=== PATIENT | female | born 1995 | race Caucasian/White ===

== ENCOUNTER 2025-04-02 15:27 | Emergency (ER) | payer MEDICAID, SELFPAY ==
--- OUTSIDE RECORDS SUMMARY | 2023-11-23 04:00 | XMS_ITS ---
Author Organization [facility] Address [address] [place] [address] [place] [address] Care Team Providers Care Hitch Technician Name Role Phone VAN CORREA MD Primary Care Provider Sunitha Tadeo Kelly Unavailable [phone] Allergies Allergen (clinical drug ingredient) Drug/Non Drug Allergy documented on EMR Reaction Allergy Type Onset Date Status levalbuterol Levalbuterol HCl Unknown Drug Allergy Active REASON FOR VISIT F/u appt for sz d/o, verbal consent obtained and pt ID verified for TeleHealth visit from physicianoffice (no video capability available) Medications Medication SIG (Take, Route, Frequency, Duration) Notes Start Date End Date Status Neupro 4 MG/24HR 1 patch to skin Transdermal Once a day; Duration: 30 days Active Ramelteon 8 MG 1 tablet at bedtime as needed Orally Once a day; Duration: 30 days 11/15/2019 Active Pantoprazole Sodium 40 MG 1 tablet Orally Once a day; Duration: 30 day(s) Active LaMICtal 150 MG 1 tablet Orally Twic e a day; Duration: 30 days Active Vimpat 100 MG 1 tablet Orally Twic e a day; Duration: 30 days 04/27/2023 Active Osmolite 1.5 Parmjit - Orally A ctive Pepcid Active Promethazine HCl 6.25 MG/5ML 10 ml as needed Orally every 6 hrs Active Zofran 4 MG 1 tablet Orally Once a day; Duration: 30 day(s) Active Claritin 5 MG/5ML 10 ml Orally Once a day Active Digoxin 0.25 mg 1 tab Oral qd Unknown Probiotic - Orally Active Methenamine Hippurate 1 GM 1 tablet Orally Twice a day Active Calcium Carbonate 1250 (500 Ca) MG 1 tablet Orally Once a day Active Vitamin D3 1000 UNIT 1 capsule Orally On ce a day Active Dilantin 125 MG/5ML 3 ml Orally Four kendrick es a day Unknown Protonix 40 MG 1 tablet Orally Once a day Unknown Tylenol 500 MG/15ML Orally Unknown Ipratropium [place] 0.02 % Inhalation Unknown Melatonin 5 MG 1 tablet at bedtime as needed with food Orally Once a day Unknown Zofran 4 MG/5ML 10 ml Orally Twice a day Unknown Norditropin FlexPro 5 MG/1.5ML as directed Subcutaneous Not -Taking Citalopram Hydrobromide 40 MG take 1.5 tablets Orally Once a day; Duration: 30 days Active Ranitidine HCl 150 MG 1 capsule at bedti me Orally twice a day Unknown traMADol HCl Not-Wilfred ing QUEtiapine Fumarate 100 MG 1 tablet at bedtime Orally Once a day; Duration: 30 days Active Baclofen 20 MG 1 tablet Orally Thre e times a day; Duration: 30 days Active Social History Tobacco Use: Social History Observation Description Date Details (start date - stop date) Never Smoker NA - NA smoking Question Answer Notes Are you a: never smoker Additional Findings: Tobacco Non-User Intolerant non-smoker alcohol Question Answer Notes Did you have a drink containing alcohol in the p ast year? 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 Assessments Encounter Date Diagnosis (ICD Code) Assessment Notes Treatment Notes Treatment Clinical Notes Section Notes 11/23/2023 Other generalized epilepsy and epileptic syndromes, not intractable, without status epilepticus (ICD-10 - G40.409) Plan Of Treatment Next Appt Details Follow Up: 6 Months, Reason: Progress Notes * NEREIDA DASOB:1995 ( 29 yo F)Acc No.[id number]:11/23/2023 Patient: CLAUDIO CORDON Provider: Ashwin Lee MD :1995 A ge:28 Y S ex:Female Date:11/23/2023 Address:[address] [place] [address] [id number] Pcp:VAN CORREA MD Subjective: * Chief Complaints: * 1 . F/u appt for sz d/o. 2. verbal consent obtained and pt ID verified for TeleHealth visit from physician office (no video capability available). * HPI: C onstitutional: Medication reviewed with patient. * ROS: C onstitutional: Covid vaccine Y es. n o F atigue. n o W eakness. C ardiology: no C hest pain. n o S hortness of breath. ? G astroenterology: no N ausea. n o V omiting. N eurology: no D izziness. n o F alls. n o N umbness.?no S eizure. n o T ingling. n o T rouble with balance. P sychology: no A nxiety. n o D epression. * Medical History: H [place], Brain injury. * Surgical History: D enies Past Surgical History. * Hospitalization/Major Diagno stic Procedure: D enies Past Hospitalization. * Family History: Mother-HTN. * Social History: A lcohol: no D id you have a drink containing alcohol in the past year? N o, P oints 0 , I nterpretation N egative. D rugs: type:. Marital status: single. Smoking: no Are you a: n ever smoker, A dditional Findings: Tobacco Non-User I ntolerant non-smoker. T obacco: no. * Medications: T aking Vitamin D3 1000 UNIT Capsule 1 capsule Orally Once a day , Taking Calcium Carbonate 1250 (500 Ca) MG Tablet Chewable 1 tablet Orally Once a day , Taking Methenamine Hippurate 1 GM Tablet 1 tablet Orally Twice a day , Taking Probiotic - Capsule Orally , Taking Osmolite 1.5 Parmjit - Liquid Orally , Taking Promethazine HCl 6.25 MG/5ML Syrup 10 ml as needed Orally every 6 hrs , Taking Pepcid , Taking Claritin 5 MG/5ML Syrup 10 ml Orally Once a day , Taking Zofran 4 MG Tablet 1 tablet Orally Once a day , Taking Pantoprazole Sodium 40 MG Tablet Delayed Release 1 tablet Orally Once a day , Taking Ramelteon 8 MG Tablet 1 tablet at bedtime as needed Orally Once a day , Taking Vimpat 100 MG Tablet 1 tablet Orally Twice a day , Taking LaMICtal 150 MG Tablet 1 tablet Orally Twice a day , Taking Neupro 4 MG/24HR Patch 24 Hour 1 patch to skin Transdermal Once a day , Taking Baclofen 20 MG Tablet 1 tablet Orally Three times a day , Taking QUEtiapine Fumarate 100 MG Tablet 1 tablet at bedtime Orally Once a day , Taking Citalopram Hydrobromide 40 MG Tablet take 1.5 tablets Orally Once a day , Not-Taking Norditropin FlexPro 5 MG/1.5ML Solution as directed Subcutaneous , Not-Taking traMADol HCl , Unknown Ranitidine HCl 150 MG Capsule 1 capsule at bedtime Orally twice a day , Unknown Zofran 4 MG/5ML Solution 10 ml Orally Twice a day , Unknown Tylenol 500 MG/15ML Liquid Orally , Unknown Melatonin 5 MG Tablet 1 tablet at bedtime as needed with food Orally Once a day , Unknown Ipratropium [place] 0.02 % Solution Inhalation , Unknown Protonix 40 MG Tablet Delayed Release 1 tablet Orally Once a day , Unknown Dilantin 125 MG/5ML Suspension 3 ml Orally Four times a day , Unknown Digoxin 0.25 mg 1 tab Oral qd , Medication List reviewed and reconciled with the patient * Allergies: L evalbuterol HCl. Objective: * Vitals: B lood pressure (BP):126/72, Wt: 110, BMI:18.88, Ht: 64, Pulse, sittin. Assessment: * Assessment: 1. 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 Screening/Special Tests: F all Risk S creening: N o falls in the past year,?Assessment: P erformed, M edications assessment: M edications may contribute to falls. * Follow Up: 6 Months * * Electronic signature of Linda Lee MD on 04/02/2025 at 03:53 PM CDT Sign off status: Pending * Provider: Ashwin Lee MD Date: 0 11/23/2023 Generated for Katelynn bailey/Gilbert/Yohana on: 0 04/02/2025 03:53 PM CDT
--- OUTSIDE RECORDS SUMMARY | 2024-05-24 04:00 | XMS_ITS ---
Author Organization [facility] Address [address] [place] [address] [place] [address] Care Team Providers Care Building Equipment Operator Name Role Phone VAN CORREA MD Primary Care Provider ArtemTadeo Norton Unavailable [phone] Medications Medication SIG (Take, Route, Frequency, Duration) Notes Start Date End Date Status Dilantin 125 MG/5ML 3 ml Orally Four kendrick es a day Unknown Digoxin 0.25 mg 1 tab Oral qd Unknown Melatonin 5 MG 1 tablet at bedtime as needed with food Orally Once a day Unknown Ipratropium [place] 0.02 % Inhalation Unknown Protonix 40 MG 1 tablet Orally Once a day Unknown Zofran 4 MG/5ML 10 ml Orally Twice a day Unknown traMADol HCl Not-Wilfred ing Ranitidine HCl 150 MG 1 capsule at bedti me Orally twice a day Unknown Norditropin FlexPro 5 MG/1.5ML as directed Subcutaneous Not -Taking Tylenol 500 MG/15ML Orally Unknown Baclofen 20 MG 1 tablet Orally Thre e times a day; Duration: 30 days Active QUEtiapine Fumarate 100 MG 1 tablet at bedtime Orally Once a day; Duration: 30 days Active Citalopram Hydrobromide 40 MG take 1.5 tablets Orally Once a day; Duration: 30 days Active LaMICtal 150 MG 1 tablet Orally Twic e a day; Duration: 30 days Active Neupro 4 MG/24HR 1 patch to skin Transdermal Once a day; Duration: 30 days Active Claritin 5 MG/5ML 10 ml Orally Once a day Active Zofran 4 MG 1 tablet Orally Once a day; Duration: 30 day(s) Active Pantoprazole Sodium 40 MG 1 tablet Orally Once a day; Duration: 30 day(s) Active Ramelteon 8 MG 1 tablet at bedtime as needed Orally Once a day; Duration: 30 days 11/15/2019 Active Vimpat 100 MG 1 tablet Orally Twic e a day; Duration: 30 days 04/27/2023 Active Probiotic - Orally Active Osmolite 1.5 Parmjit - Orally A ctive Promethazine HCl 6.25 MG/5ML 10 ml as needed Orally every 6 hrs Active Pepcid Active Methenamine Hippurate 1 GM 1 tablet Orally Twice a day Active Vitamin D3 1000 UNIT 1 capsule Orally On ce a day Active Calcium Carbonate 1250 (500 Ca) MG 1 tablet Orally Once a day Active Encounters Encounter Location Date Provider Diagnosis [facility] [place] [address] 05/24/2024 Tadeo Lee Plan Of Treatment No Information Progress Notes * PIPPA NEREIDAOB:1995 ( 29 yo F)Acc No.[id number]:05/24/2024 Patient: CLAUDIO CORDON Provider: Ashwin Lee MD :1995 A ge:28 Y S ex:Female Date:05/24/2024 Address:[address] [place], [place] [id number] Pcp:VAN CORREA MD Subjective: * Chief Complaints: * * ROS: C onstitutional: Covid vaccine Y [...] n o D epression. * Medical History: * Medications: T aking Vitamin D3 1000 [...] Orally Once a day , Unknown Ipratropium [place] 0.02 % Solution Inhalation , Unknown Protonix 40 MG Tablet Delayed Release 1 tablet Orally Once a day , Unknown Dilantin 125 MG/5ML Suspension 3 ml Orally Four times a day , Unknown Digoxin 0.25 mg 1 tab Oral qd Objective: * Vitals: Assessment: Plan: * Treatment: * * Electronic signature of Linda Lee MD on 04/02/2025 at 03:53 PM CDT Sign off status: Pending * Provider: Ashwin Lee MD Date: 07/24/2023 Generated for Katelynn bailey/Gilbert/Yohana on: 0 04/02/2025 03:53 PM CDT
--- OUTSIDE RECORDS SUMMARY | 2024-06-19 04:30 | XMS_ITS ---
Author Organization [facility] Address [address] [place] [address] [place] [address] Care Team Providers Care Set Painter Name Role Phone VAN CORREA MD Primary Care Provider ArtemTadeo Norton Unavailable [phone] Allergies Allergen (clinical drug ingredient) Drug/Non Drug Allergy documented on EMR Reaction Allergy Type Onset Date Status levalbuterol Levalbuterol HCl Unknown Drug Allergy Active REASON FOR VISIT F/U appt for epilepsy, verbal consent obtained and pt ID verified for TeleHealth visit from physician office (no video capability available) Medications Medication SIG (Take, Route, Frequency, Duration) Notes Start Date End Date Status Protonix 40 MG 1 tablet Orally Once a day Unknown Dilantin 125 MG/5ML 3 ml Orally Four kendrick es a day Unknown Digoxin 0.25 mg 1 tab Oral qd Unknown Melatonin 5 MG 1 tablet at bedtime as needed with food Orally Once a day Unknown Ipratropium [place] 0.02 % Inhalation Unknown Norditropin FlexPro 5 MG/1.5ML as directed Subcutaneous Not -Taking traMADol HCl Not-Wilfred ing Ranitidine HCl 150 MG 1 capsule at bedti me Orally twice a day Unknown Zofran 4 MG/5ML 10 ml Orally Twice a day Unknown Tylenol 500 MG/15ML Orally Unknown Citalopram Hydrobromide 40 MG take 1.5 tablets Orally Once a day; Duration: 30 days Active Baclofen 20 MG 1 tablet Orally Thre e times a day; Duration: 30 days Active QUEtiapine Fumarate 100 MG 1 tablet at bedtime Orally Once a day; Duration: 30 days Active Neupro 4 MG/24HR 1 patch to skin Transdermal Once a day; Duration: 30 days Active LaMICtal 150 MG 1 tablet Orally Twic e a day; Duration: 30 days Active Claritin [...] a day; Duration: 30 days 04/27/2023 Active Promethazine HCl 6.25 MG/5ML 10 ml as needed Orally every 6 hrs Active Pepcid Active Osmolite 1.5 Parmjit - Orally A ctive Methenamine Hippurate 1 GM 1 tablet Orally Twice a day Active Probiotic - Orally Active Vitamin D3 1000 UNIT 1 capsule Orally On ce a day Active Calcium Carbonate 1250 (500 Ca) MG 1 tablet Orally Once a day Active Social History Tobacco Use: Social History Observation Description Date Details (start date - stop date) Never Smoker NA - NA smoking Question Answer Notes Are you a: never smoker Additional Findings: Tobacco Non-User Intolerant non-smoker alcohol Question Answer Notes Did you have a drink containing alcohol in the p ast year? 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 F/U appt for epilepsy. 2. verbal consent obtained and pt ID verified for TeleHealth visit from physician office (no video capability available). * HPI: C onstitutional: meds reviewed with caregiver. * ROS: C onstitutional: Fatigue y es. n o W eakness. C ardiology: no C hest pain. n o S hortness of breath. ? G astroenterology: no N ausea. n o V omiting. N eurology: no D izziness. n o F alls. n o N umbness.?no S eizure. n o T ingling. T rouble with balance y es. P sychology: Anxiety y es. n o D epression. * Medical History: [...] Orally Once a day , Unknown Ipratropium [place] 0.02 % Solution Inhalation , Unknown Protonix 40 MG Tablet Delayed Release 1 tablet Orally Once a day , Unknown Dilantin 125 MG/5ML Suspension 3 ml Orally Four times a day , Unknown Digoxin 0.25 mg 1 tab Oral qd , Medication List reviewed and reconciled with the patient * Allergies: L evalbuterol HCl. Objective: * Vitals: B lood pressure (BP):120/70, Wt: 110, BMI:18.88, Ht: 64, Pulse, sittin. Assessment: * Assessment: 1. 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 Screening/Special Tests: F all Risk S creening: N o falls in the past year,?Assessment: P erformed, M edications assessment: M edications may contribute to falls. * * Electronic signature of Linda Lee MD on 04/02/2025 at 03:49 PM CDT Sign off status: Pending * Provider: S unil Lee, MD Date: 1 08/20/2023 Generated for Katelynn bailey/Gilbert/Yohana on: 0 04/02/2025 03:49 PM CDT
--- OUTSIDE RECORDS SUMMARY | 2024-12-12 04:15 | XMS_ITS ---
Author Organization [facility] Address [address] [place] [address] [place] [address] Care Team Providers Care Can Slider Name Role Phone VAN CORREA MD Primary Care Provider Tadeo [place]o Unavailable [phone] Medications Medication SIG (Take, Route, Frequency, Duration) Notes Start Date End Date Status Dilantin 125 MG/5ML 3 ml Orally Four kendrick es a day Unknown Digoxin 0.25 mg 1 tab Oral qd Unknown Vitamin D3 1000 UNIT 1 capsule Orally On ce a day Active Calcium Carbonate 1250 (500 Ca) MG 1 tablet Orally Once a day Active Protonix 40 MG 1 tablet Orally Once a day Unknown Melatonin 5 MG 1 tablet at bedtime as needed with food Orally Once a day Unknown Ipratropium [place] 0.02 % Inhalation Unknown Ranitidine HCl 150 MG 1 capsule at bedti me Orally twice a day Unknown Zofran 4 MG/5ML 10 ml Orally Twice a day Unknown Tylenol 500 MG/15ML Orally Unknown QUEtiapine Fumarate 100 MG 1 tablet at bedtime Orally Once a day; Duration: 30 days Active Citalopram Hydrobromide 40 MG take 1.5 tablets Orally Once a day; Duration: 30 days Active Norditropin FlexPro 5 MG/1.5ML as directed Subcutaneous Not -Taking Baclofen 20 MG 1 tablet Orally Thre e times a day; Duration: 30 days Active traMADol HCl Not-Wilfred ing Vimpat 100 MG 1 tablet Orally Twic e a day; Duration: 30 days 04/27/2023 Active LaMICtal 150 MG 1 tablet Orally Twic e a day; Duration: 30 days Active Neupro 4 MG/24HR 1 patch to skin Transdermal Once a day; Duration: 30 days Active Pantoprazole Sodium 40 MG 1 tablet Orally Once a day; Duration: 30 day(s) Active Ramelteon 8 MG 1 tablet at bedtime as needed Orally Once a day; Duration: 30 days 11/15/2019 Active Promethazine HCl 6.25 MG/5ML 10 ml as needed Orally every 6 hrs Active Pepcid Active Osmolite 1.5 Parmjit - Orally A ctive Claritin 5 MG/5ML 10 ml Orally Once a day Active Zofran 4 MG 1 tablet Orally Once a day; Duration: 30 day(s) Active Methenamine Hippurate 1 GM 1 tablet Orally Twice a day Active Probiotic - Orally Active Encounters Encounter Location Date Provider [facility] [address] [place] [address] 12/12/2024 Tadeo Lee Plan Of Treatment No Information Progress Notes * NEREIDA DASOB:1995 ( 29 yo F)Acc No.[id number]:12/12/2024 Patient: CLAUDIO CORDON Provider: Ashwin Lee MD :1995 A ge:29 Y S ex:Female Date:12/12/2024 Address:[address] [place], [place] [id number] Pcp:VAN CORREA MD Subjective: * Chief Complaints: * * Medical History: * Medications: T aking [...] Orally Once a day , Unknown Ipratropium [place] 0.02 % Solution Inhalation , Unknown Protonix [...] Pending * Provider: Ashwin Lee MD Date: 12/12/2024 Generated for Katelynn bailey/Gilbert/Yohana on: 0 04/02/2025 03:53 PM CDT
--- OUTSIDE RECORDS SUMMARY | 2024-12-18 04:00 | XMS_ITS ---
Author Organization [facility] Address [address] [place] [address] Care Team Providers Care Recycle Worker Name Role Phone MADELINE BELL, VAN Primary Care Provider Tadeo Macedo Unavailable [phone] Encounters Encounter Location Date Provider Diagnosis [facility] Medical [facility] [place] [address] 12/18/2024 Tadeo Lee Plan Of Treatment No Information Progress Notes * CARLOS DASEDOB:1995 ( 29 yo F)Acc No.[id number]:12/18/2024 Patient: CLAUDIO CORDON Provider: Ashwin Lee MD :1995 A ge:29 Y S ex:Female Date:12/18/2024 Address:[address] [place] [address] [id number] Pcp:VAN CORREA MD Subjective: * Chief Complaints: * * Medical History: Objective: * Vitals: Assessment: Plan: * Treatment: * * Electronic signature of Linda Lee MD on 04/02/2025 at 03:53 PM CDT Sign off status: Pending * Provider: Ashwin Lee MD Date: 12/18/2024 Generated for Printi ng/Faxing/eTransmitting on: 0 04/02/2025 03:53 PM CDT
[2025-04-02 15:30] VITALS: BP 112/72; PULSE 110; RESP 18; TEMP 36.4; O2SAT 93
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
--- OUTSIDE RECORDS SUMMARY | 2025-04-02 15:49 | XMS_ITS | CCD ---
Author Name Interface, [facility] Address [address] [place] [id number] [facility] [place] [address] [place] [id number] Reason for Visit Social History Date Name Value 08/08/2020 Sex Female
--- OUTSIDE RECORDS SUMMARY | 2025-04-02 15:53 | XMS_ITS | Patient Health Record ---
Author Organization [facility] Address [address] [place] [address] [place] [address] Care Team Providers Care Social Work Professor Name Role Phone VAN CORREA MD Primary Care Provider Unavaila abdulkadir Lee, Tadeo Unavailable [phone] Allergies Allergen (clinical drug ingredient) Drug/Non Drug Allergy documented on EMR Reaction Allergy Type Onset Date Status levalbuterol Levalbuterol HCl Unknown Drug Allergy Active Reason For Referral No Information Medications Medication SIG (Take, Route, Frequency, Duration) Notes Start Date End Date Status Osmolite 1.5 Parmjit - Orally A ctive Vitamin D3 1000 UNIT 1 capsule Orally On ce a day Active Melatonin 5 MG 1 tablet at bedtime as needed with food Orally Once a day Unknown Calcium Carbonate 1250 (500 Ca) MG 1 tablet Orally Once a day Active Ipratropium [place] 0.02 % Inhalation Unknown Methenamine Hippurate 1 GM 1 tablet Orally Twice a day Active Protonix 40 MG 1 tablet Orally Once a day Unknown Probiotic - Orally Active traMADol HCl Not-Wilfred ing Ranitidine HCl 150 [...] 5 MG/1.5ML as directed Subcutaneous Not -Taking Vimpat 100 MG 1 tablet Orally Twic e a day; Duration: 30 days 04/27/2023 Active LaMICtal 150 MG 1 tablet Orally Twic e a day; Duration: 30 days Active Neupro 4 MG/24HR 1 patch to skin Transdermal Once a day; Duration: 30 days Active Baclofen 20 MG 1 tablet Orally Thre e times a day; Duration: 30 days Active Claritin 5 MG/5ML 10 ml Orally Once a day Active Zofran 4 MG 1 tablet Orally Once a day; Duration: 30 day(s) Active Pantoprazole Sodium 40 MG 1 tablet Orally Once a day; Duration: 30 day(s) Active Ramelteon 8 MG 1 tablet at bedtime as needed Orally Once a day; Duration: 30 days 11/15/2019 Active Dilantin 125 MG/5ML 3 ml Orally Four kendrick es a day Unknown Digoxin 0.25 mg 1 tab Oral qd Unknown Promethazine HCl 6.25 MG/5ML 10 ml as needed Orally every 6 hrs Active Pepcid Active Social History Tobacco Use: Social History Observation Description Date Details (start date - stop date) Never Smoker NA - NA smoking Question Answer Notes Are you a: never smoker Additional Findings: Tobacco Non-User Intolerant non-smoker alcohol Question Answer Notes Did you have a drink containing alcohol in the p ast year? 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 (F32.89) Active confirmed Vital Signs Blood pressure diastolic 70 06/19/2024 Height 64 in 06/19/2024 Blood pressure systolic 120 06/19/2024 Weight 110 lbs 06/19/2024 BMI 18.88 kg/m2 06/19/2024 Encounters Encounter Location Date Provider Diagnosis [facility] [address] [place] [address] 06/19/2024 Tadeo Lee Other generalized epilepsy and epileptic syndromes, not intractable, without status epilepticus G40.409 Assessments Encounter Date Diagnosis (ICD Code) Assessment Notes Treatment Notes Treatment Clinical Notes Section Notes 06/19/2024 Other generalized epilepsy and epileptic syndromes, not intractable, without status epilepticus (ICD-10 - G40.409) Plan Of Treatment Pending Test Test Name Order Date Electroencephelography (EEG) 12/07/2017 CBC With Differential/Platelet 1 CBC With Differential/Platelet 1 Comp. Metabolic Panel (14) 04/29/2021 Comp. Metabolic Panel (14) 10/29/2020 Ambulatory EEG w/Video 03/10/2016 Medical (General) History Medical History History ICD Code HTN Brain injury Surgical History Surgery Date(Month/Year)
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
[2025-04-02 16:54] LABS: Glucose Urine UA Negative (Normal); Nitrate Urine Negative (Negative); Specific Gravity, Urine 1.027 (1.005-1.030)
[2025-04-02 16:55] LABS: HCG Qualitative Urine. Negative (Negative)
--- NOTE | 2025-04-02 17:00 | PC.NURSE ---
Patient is unable to sign documents. Guardian called at this time per patient request. Patient gave verbal consent and guardian was aware.
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
[2025-04-02 18:01] LABS: Trichomonas vaginalis (PCR) NOT DETECTED (Negative)
[2025-04-02 18:23] LABS: Neisseria Gonorrhea NOT DETECTED (Negative)
== END 2025-04-02 16:40 | disposition home or self-care (01) ==
PROVIDERS: Emergency Provider Family Medicine; PCP Nurse Practitioner Family
DX: T74.21XA Adult sexual abuse, confirmed, initial encounter (principal); G82.50 Quadriplegia, unspecified; Z87.820 Personal history of traumatic brain injury; M62.838 Other muscle spasm; X58.XXXA Exposure to other specified factors, initial encounter
CPT/HCPCS: 81001; 81025; 87491; 87591; 87661